=== PATIENT | female | born 1995 | race Caucasian/White ===

== ENCOUNTER → 2021-11-15 | Outpatient (CLI) | payer OTHER ==
[2021-11-15 10:13] LABS: HEMOGLOBIN 11.8 g/dl (12.0-15.5); MEAN CORPUSCULAR HGB CONC 33.7 g/dl (32.0-36.5); MEAN CORPUSCULAR VOLUME 83.1 fl (80.0-96.0); PLATELET COUNT, AUTOMATED 208 10^3/uL (150-450); RED BLOOD COUNT 4.21 10^6/uL (4.00-5.40)
[2021-11-15 11:55] LABS: GC DNA AMPLIFICATION NEGATIVE (NEGATIVE)
== END ==
LOC: M PLALAB 07:44
PROVIDERS: ATTEND Obstetrics & Gynecology
DX: Z34.82 Encounter for supervision of other normal pregnancy, second trimester (principal)

== ENCOUNTER → 2021-12-05 | Outpatient (CLI) | payer OTHER | LOC: MERGE 07:52 → M LAB 07:52 | PROVIDERS: ATTEND Obstetrics & Gynecology | DX: Z36.89 Encounter for other specified antenatal screening (principal) ==

== ENCOUNTER → 2022-01-04 | Outpatient (CLI) | payer OTHER ==
[~2022-01-04] MED LIST: FAMO20TA PO; PRENTAB9 PO
== END ==
LOC: M WHC 13:47
PROVIDERS: ATTEND Obstetrics & Gynecology
DX: O24.419 Gestational diabetes mellitus in pregnancy, unspecified control (principal); Z3A.36 36 weeks gestation of pregnancy

== ENCOUNTER 2022-01-07 06:14 | Observation (INO) | payer OTHER ==
[~2022-01-07] VITALS: Ht 162.6 cm; Wt 103.3 kg
[2022-01-07] MEDS ORDERED: FAMO20TA PO (06:25)
[2022-01-07] MEDS ORDERED: PRENTAB9 PO (06:25)
[2022-01-07 06:27] VITALS: BP 139/86
[2022-01-07] MEDS ORDERED: HOME MED LIST COMPLETE! XX SCH (06:30)
[2022-01-07] MEDS ORDERED: LR 1,000 ML IV SCH (06:45)
[2022-01-07] MEDS: BETAMETHASONE SOLUSPAN 6MG/ML 5ML VIAL (J0702 PER 3MG) IM SCH (07:11)
[2022-01-07 07:23] LABS: HEMATOCRIT 33.8 % (36.0-47.0); HEMOGLOBIN 11.4 g/dl (12.0-15.5); MEAN CORPUSCULAR HEMOGLOBIN 27.7 pg (27.0-33.0); MEAN CORPUSCULAR HGB CONC 33.7 g/dl (32.0-36.5); PLATELET COUNT, AUTOMATED 193 10^3/uL (150-450); RED BLOOD COUNT 4.12 10^6/uL (4.00-5.40); WHITE BLOOD COUNT 7.5 10^3/uL (4.0-10.0)
[2022-01-07 07:56] VITALS: BP 133/67
[2022-01-07 08:11] LABS: INR 0.84; PROTHROMBIN TIME 11.9 SECONDS (12.7-14.5)
[2022-01-07 08:12] LABS: PARTIAL THROMBOPLASTIN TIME 25.4 SECONDS (25.9-37.0)
[2022-01-07 09:56] VITALS: BP 119/69
[2022-01-07 12:08] VITALS: BP 134/81
[2022-01-07 14:03] LABS: GC DNA AMPLIFICATION NEGATIVE (NEGATIVE)
[2022-01-08] MEDS: BETAMETHASONE SOLUSPAN 6MG/ML 5ML VIAL (J0702 PER 3MG) IM SCH (06:43)
[2022-01-08 06:51] VITALS: BP 133/80
== END 2022-01-07 12:17 | disposition home or self-care (01) ==
LOC: M LDO 06:14 → M LDI 06:15
PROVIDERS: ADMIT Obstetrics & Gynecology; ATTEND Obstetrics & Gynecology
DX: O60.03 Preterm labor without delivery, third trimester (principal); O26.853 Spotting complicating pregnancy, third trimester; Z3A.33 33 weeks gestation of pregnancy; Z79.899 Other long term (current) drug therapy
CPT/HCPCS: 36415; 85027; 85384; 85460; 85610; 85730; 86850; 86900; 86901; 87070; 87077; 87081; 87661; 87810; 87850; 96360; 96361; 96372; J0702

== ENCOUNTER 2022-01-08 06:33 | Outpatient (CLI) | payer OTHER ==
[~2022-01-08] VITALS: Ht 162.6 cm; Wt 102.0 kg
[2022-01-08 06:30] VITALS: BP 133/80
[2022-01-08] MEDS ORDERED: BETAMETHASONE SOLUSPAN 6MG/ML 5ML VIAL (J0702 PER 3MG) IM ONE (07:05)
== END 2022-01-08 06:44 | disposition home or self-care (01) ==
LOC: M LDO 06:33
PROVIDERS: ATTEND Advanced Practice Midwife
DX: O60.03 Preterm labor without delivery, third trimester (principal); O26.853 Spotting complicating pregnancy, third trimester; Z3A.34 34 weeks gestation of pregnancy
CPT/HCPCS: 59025; 96372; J0702

== ENCOUNTER 2022-01-21 15:10 | Outpatient (CLI) | payer OTHER ==
[~2022-01-21] VITALS: Ht 162.6 cm; Wt 104.4 kg
[2022-01-21 15:40] VITALS: BP 133/78
[2022-01-21] MEDS ORDERED: FLUCONAZOLE 50MG TABLET PO SCH (16:00)
[2022-01-21 16:48] VITALS: BP 123/70
== END 2022-01-21 18:20 ==
LOC: M LDO 15:10
PROVIDERS: ATTEND Advanced Practice Midwife
DX: O60.03 Preterm labor without delivery, third trimester (principal); O23.593 Infection of other part of genital tract in pregnancy, third trimester; O26.893 Other specified pregnancy related conditions, third trimester; M54.30 Sciatica, unspecified side; Z3A.35 35 weeks gestation of pregnancy

== ENCOUNTER 2022-02-13 06:43 | Inpatient (IN) | payer OTHER ==
[~2022-02-13] VITALS: Ht 162.6 cm; Wt 106.3 kg
[2022-02-13] VITALS (22 sets, daily range): BP systolic 131–174; BP diastolic 77–101
[2022-02-13] MEDS ORDERED: HOME MED LIST COMPLETE! XX SCH (07:10)
[2022-02-13] MEDS ORDERED: TRANEXAMIC ACID INJection 1,000 MG in NS 100 ML IV PRN (08:05)
[2022-02-13] MEDS ORDERED: LIDOCAINE 1% MDV 20ML VIAL INFIL PRN (08:05)
[2022-02-13] MEDS ORDERED: CARBOPROST TROMETHAMINE 250 MCG/ML AMP IM PRN (08:05)
[2022-02-13] MEDS ORDERED: miSOPROStol 50MCG 1/2 TABLET PO ONE (08:05)
[2022-02-13] MEDS ORDERED: OXYTOCIN DRIP 30 UNITS in IV 1 EA IV PRN ×4 (08:05)
[2022-02-13] MEDS ORDERED: OXYTOCIN INJ 10 UNITS/ML VIAL (J2590) IM PRN (08:05)
[2022-02-13] MEDS ORDERED: METHYLERGONOVINE MALEATE 0.2 MG/ML VIAL (J2210) IM PRN (08:05)
[2022-02-13 09:07] LABS: TOTAL PROTEIN,RANDOM URINE 28.4 MG/DL (0.0-12.0)
[2022-02-13] MEDS: miSOPROStol 50MCG 1/2 TABLET PO SCH ×3 (09:10→18:25)
[2022-02-13 09:11] LABS: HEMATOCRIT 36.7 % (36.0-47.0); HEMOGLOBIN 12.2 g/dl (12.0-15.5); MEAN CORPUSCULAR HEMOGLOBIN 27.1 pg (27.0-33.0); MEAN CORPUSCULAR HGB CONC 33.2 g/dl (32.0-36.5); MEAN CORPUSCULAR VOLUME 81.4 fl (80.0-96.0); PLATELET COUNT, AUTOMATED 220 10^3/uL (150-450); RED BLOOD COUNT 4.51 10^6/uL (4.00-5.40); WHITE BLOOD COUNT 8.5 10^3/uL (4.0-10.0)
[2022-02-13 10:13] LABS: HEMOGLOBIN A1c 5.1 %
[2022-02-13 10:29] LABS: ALT/SGPT 15 U/L (12-78); BILIRUBIN,TOTAL 0.2 MG/DL (0.2-1.0); CREATININE FOR GFR 0.55 MG/DL (0.55-1.30); GLOMERULAR FILTRATION RATE > 60.0 (>60); LDH LACTATE DEHYDROGENASE 128 U/L (84-246); URIC ACID 3.6 MG/DL (2.6-6.0)
[2022-02-13] MEDS ORDERED: ACETAMINOPHEN 500 MG TAB PO PRN (19:50)
[2022-02-13] MEDS ORDERED: OXYTOCIN DRIP 30 UNITS in IV 1 EA IV SCH (21:15)
[2022-02-13] MEDS: LR 1,000 ML IV SCH (22:36)
[2022-02-14] VITALS (41 sets, daily range): BP systolic 117–165; BP diastolic 61–104
[2022-02-14] MEDS ORDERED: BUTORPHANOL 2 MG/ML INJ (J0595) IV ONE (02:10)
[2022-02-14] MEDS ORDERED: PROMETHAZINE 25MG/ML 1ML VIAL IV ONE (02:10)
[2022-02-14] MEDS ORDERED: FENTANYL 2MCG/ML ROPIVACAINE 0.2% IN 0.9% NACL 100ML IVBAG As Ordered ONE (04:15)
[2022-02-14] MEDS: LR 1,000 ML IV SCH ×2 (04:52→07:28)
[2022-02-14] MEDS ORDERED: ePHEDrine SULFATE 25 MG/5 ML(5MG/ML) SYRINGE IVP PRN (05:10)
[2022-02-14] MEDS ORDERED: NALOXONE INJ 0.4MG/1ML VIAL (J2310 PER 1MG) IV PRN (05:10)
[2022-02-14] MEDS ORDERED: diphenhydrAMINE 50MG/ML VIAL (J1200) IV PRN (05:10)
[2022-02-14] MEDS ORDERED: LR 500 ML IV PRN (05:10)
[2022-02-14] MEDS ORDERED: ONDANSETRON 4MG/2ML VIAL IV PRN ×2 (05:10→09:25)
[2022-02-14] MEDS ORDERED: EPIDURAL/PCA KEYS XX PRN (05:10)
[2022-02-14] MEDS: FENTANYL/ROPIVACAINE/NACL BAG 100 ML EPIDURAL SCH ×2 (05:16→11:42)
[2022-02-14] MEDS ORDERED: RHOGAM 300 MCG (1500 IU) INJ (J2790) IM SCH (09:25)
[2022-02-14] MEDS ORDERED: IBUPROFEN 800 MG TAB PO PRN (09:25)
[2022-02-14] MEDS ORDERED: ACETAMINOPHEN 500 MG TAB PO PRN (09:25)
[2022-02-14] MEDS ORDERED: IBUPROFEN 600MG TAB PO PRN (09:25)
[2022-02-14] MEDS ORDERED: LR 1,000 ML IV SCH (09:25)
[2022-02-14] MEDS ORDERED: OXYTOCIN DRIP 30 UNITS in IV 1 EA IV SCH (09:25)
[2022-02-14] MEDS ORDERED: METHYLERGONOVINE MALEATE 0.2 MG TAB PO PRN (09:25)
[2022-02-14] MEDS ORDERED: ACETAMINOPHEN TAB 650MG DOSE (2X325MG) PO PRN (09:25)
[2022-02-14] MEDS ORDERED: DOCUSATE SODIUM 100MG CAPSULE PO PRN (09:25)
[2022-02-14] MEDS ORDERED: DIBUCAINE 1% OINTMENT 30GM TOP PRN (09:25)
[2022-02-14] MEDS: PRENATAL VITAMINS CHEWABLE TABLET PO SCH (11:40)
[2022-02-15 06:00] VITALS: BP 122/82
[2022-02-15] MEDS: PRENATAL VITAMINS CHEWABLE TABLET PO SCH (07:51)
[2022-02-15] MEDS ORDERED: IBUP80TA PO (10:28)
[2022-02-15] MEDS ORDERED: ACET-683 PO (10:28)
[2022-02-16] MEDS ORDERED: MEASLES,MUMPS,RUBELLA VACCINE INJ (MMR-II) (90707) SC ONE (09:00)
== END 2022-02-15 12:31 | disposition home or self-care (01) | DRG 560 ==
LOC: M LDI 06:43 → M OBS 02-14 11:29
PROVIDERS: ADMIT Advanced Practice Midwife; ATTEND Obstetrics & Gynecology
PROC: 3E0P7GC Introduction of Other Therapeutic Substance into Female Reproductive, Via Natural or Artificial Opening (ICD-10-PCS; 2022-02-13)
PROC: 10E0XZZ Delivery of Products of Conception, External Approach (ICD-10-PCS; principal; 2022-02-14)
DX: O24.420 Gestational diabetes mellitus in childbirth, diet controlled (principal); Z3A.39 39 weeks gestation of pregnancy; Z37.0 Single live birth; O99.214 Obesity complicating childbirth; E66.9 Obesity, unspecified; Z68.34 Body mass index [BMI] 34.0-34.9, adult

== ENCOUNTER 2022-04-10 08:37 | Emergency (ER) | payer OTHER ==
[~2022-04-10] VITALS: Ht 162.6 cm; Wt 93.9 kg
[~2022-04-10 08:37] MED LIST changes: +ACET-683 PO; +IBUP80TA PO
[2022-04-10] MEDS ORDERED: KETOROLAC TROMETHAMINE 10 MG TAB PO ONE (12:30)
[2022-04-10 13:31] VITALS: BP 125/81
== END 2022-04-10 13:48 | disposition home or self-care (01) ==
LOC: M ED 08:37 → EDBD 08:37 → M ED 13:48
DX: Z04.1 Encounter for examination and observation following transport accident (principal)

== ENCOUNTER → 2022-05-20 | Outpatient (REF) | payer OTHER | LOC: M SFHCWAGY 17:08 | PROVIDERS: ATTEND Obstetrics & Gynecology | DX: Z12.4 Encounter for screening for malignant neoplasm of cervix (principal) ==

== ENCOUNTER 2022-10-16 20:13 | Emergency (ER) | payer OTHER ==
[~2022-10-16] VITALS: Ht 165.1 cm; Wt 96.4 kg
[2022-10-16 20:15] VITALS: BP 134/90
== END 2022-10-16 22:53 | disposition left against medical advice (07) ==
LOC: M ED 20:13
DX: Z53.21 Procedure and treatment not carried out due to patient leaving prior to being seen by health care provider (principal)

== ENCOUNTER → 2022-11-26 | Outpatient (CLI) | payer OTHER | LOC: M RAD 12:51 | PROVIDERS: ATTEND Physician Assistant | DX: R10.2 Pelvic and perineal pain (principal) ==

== ENCOUNTER 2022-12-31 10:06 | Emergency (ER) | payer OTHER ==
[~2022-12-31] VITALS: Ht 165.1 cm; Wt 96.4 kg
[2022-12-31] MEDS ORDERED: PROCHLORPERAZINE 10MG 2ML VIAL IV ONE (10:20)
[2022-12-31] MEDS ORDERED: diphenhydrAMINE 50MG/ML VIAL IV STA (10:20)
[2022-12-31 11:10] LABS: BASO % 0.4 % (0.0-1.0); EOS # 0.3 10^3/uL (0.0-0.5); EOS % 3.4 % (0.0-3.0); HEMATOCRIT 41.9 % (36.0-47.0); HEMOGLOBIN 13.7 g/dl (12.0-15.5); LYMPH # 1.6 10^3/uL (1.5-5.0); LYMPH % 18.8 % (24.0-44.0); MEAN CORPUSCULAR HEMOGLOBIN 26.4 pg (27.0-33.0); MEAN CORPUSCULAR HGB CONC 32.7 g/dl (32.0-36.5); MEAN CORPUSCULAR VOLUME 80.9 fl (80.0-96.0); MONO # 0.4 10^3/uL (0.0-0.8); MONO % 5.2 % (2.0-8.0); NEUTROPHILS # 6.1 10^3/uL (1.5-8.5); NEUTROPHILS % 71.5 % (36.0-66.0); PLATELET COUNT, AUTOMATED 252 10^3/uL (150-450); RED BLOOD COUNT 5.18 10^6/uL (4.00-5.40); WHITE BLOOD COUNT 8.5 10^3/uL (4.0-10.0)
[2022-12-31 11:26] LABS: INR 0.91; PARTIAL THROMBOPLASTIN TIME 26.2 SECONDS (24.8-34.2); PROTHROMBIN TIME 12.4 SECONDS (12.5-14.5)
[2022-12-31 11:37] LABS: ALBUMIN 3.5 G/DL (3.2-5.2); ALKALINE PHOSPHATASE 88 U/L (46-116); ALT/SGPT 13 U/L (7.0-40); AST/SGOT 16 U/L (<34); BILIRUBIN,TOTAL 0.6 MG/DL (0.3-1.2); BLOOD UREA NITROGEN 9 MG/DL (9-23); CALCIUM LEVEL 8.5 MG/DL (8.5-10.1); CARBON DIOXIDE LEVEL 24 MMOL/L (20-31); CHLORIDE LEVEL 108 MMOL/L (98-107); CREATININE FOR GFR 0.58 MG/DL (0.55-1.30); GLOMERULAR FILTRATION RATE > 60.0 (>60); GLUCOSE, FASTING 92 MG/DL (60-100); POTASSIUM SERUM 4.3 MMOL/L (3.5-5.1); SODIUM LEVEL 138 MMOL/L (136-145); TOTAL PROTEIN 6.5 G/DL (5.7-8.2)
[2022-12-31] MEDS ORDERED: ISOVUE-370 76% 100ML VIAL As Ordered ONE (11:41)
[2022-12-31 12:38] LABS: ERYTHROCYTE SEDIMENTATION RATE 24 mm/hr (0-20)
[2022-12-31 12:59] VITALS: BP 145/82
== END 2022-12-31 13:01 | disposition home or self-care (01) ==
LOC: M ED 10:06 → EDBD 10:06 → M ED 13:01
DX: R51.9 Headache, unspecified (principal); Z86.32 Personal history of gestational diabetes
CPT/HCPCS: 70450; 70496; 70498; 80053; 84702; 85025; 85610; 85652; 85730; 86140; 96374; 96375; 99284; J0780; J1200; Q9967

== ENCOUNTER → 2023-11-25 | Outpatient (REF) | payer OTHER, MEDICAID | LOC: M LAB REF 20:56 | PROVIDERS: ATTEND Physician Assistant Medical | DX: R07.0 Pain in throat (principal) ==

== ENCOUNTER → 2024-03-23 | Outpatient (REF) | payer OTHER, MEDICAID ==
[2024-03-23 18:02] LABS: TOTAL 25(OH) VITAMIN D 30.4 NG/ML (20.0-100.0)
[2024-03-23 18:05] LABS: ALBUMIN 3.9 G/DL (3.2-5.2); ALKALINE PHOSPHATASE 108 U/L (46-116); ALT/SGPT 16 U/L (7.0-40); AST/SGOT < 8 U/L (<34); BILIRUBIN,TOTAL 0.4 MG/DL (0.3-1.2); BLOOD UREA NITROGEN 13 MG/DL (9-23); CALCIUM LEVEL 9.7 MG/DL (8.5-10.1); CARBON DIOXIDE LEVEL 26 MMOL/L (20-31); CHLORIDE LEVEL 108 MMOL/L (98-107); CHOLESTEROL LEVEL 210 MG/DL (<200); CHOLESTEROL RISK RATIO 7.16 (<5); CREATININE FOR GFR 0.74 MG/DL (0.55-1.30); GLOMERULAR FILTRATION RATE > 60.0 (>60); GLUCOSE, FASTING 63 MG/DL (60-100); HDL CHOLESTEROL 29.3 MG/DL (>40); LDL CHOLESTEROL 129.9 MG/DL (<100); NON-HDL-C 180.7 MG/DL; POTASSIUM SERUM 4.3 MMOL/L (3.5-5.1); SODIUM LEVEL 141 MMOL/L (136-145); TOTAL PROTEIN 7.1 G/DL (5.7-8.2); TRIGLYCERIDES LEVEL 254 MG/DL (<150)
[2024-03-23 18:35] LABS: HEMOGLOBIN A1c 5.1 % (4.0-6.0)
== END ==
LOC: M LAB REF 16:41
PROVIDERS: ATTEND Physician Assistant
DX: Z11.9 Encounter for screening for infectious and parasitic diseases, unspecified (principal); E66.9 Obesity, unspecified

== ENCOUNTER → 2025-07-25 | Outpatient (REF) | payer OTHER, MEDICAID | LOC: M LAB REF 11:49 | PROVIDERS: ATTEND Physician Assistant Medical | DX: B34.9 Viral infection, unspecified (principal) ==

== ENCOUNTER → 2025-07-26 | Outpatient (REF) | payer OTHER, MEDICAID ==
[2025-07-26 16:31] LABS: PLATELET COUNT, AUTOMATED 305 10^3/uL (150-450)
[2025-07-26 16:48] LABS: C REACTIVE PROTEIN QUANTITATIV 1.91 MG/DL (<1.0)
[2025-07-26 16:49] LABS: ALT/SGPT 32 U/L (7.0-40); AST/SGOT 25 U/L (<34); CALCIUM LEVEL 9.1 MG/DL (8.5-10.1); CARBON DIOXIDE LEVEL 26 MMOL/L (20-31); CHLORIDE LEVEL 104 MMOL/L (98-107); CK-MB VALUE MASS < 1.0 NG/ML (<3.6); CREATININE FOR GFR 0.67 MG/DL (0.55-1.30); GLOMERULAR FILTRATION RATE > 90.0 (>60); MAGNESIUM LEVEL 1.8 MG/DL (1.8-2.4); POTASSIUM SERUM 4.2 MMOL/L (3.5-5.1); SODIUM LEVEL 139 MMOL/L (136-145)
[2025-07-26 16:52] LABS: CPK CREATINE PHOSPHOKINASE 58 U/L (34-145)
== END ==
LOC: M LAB REF 16:12
PROVIDERS: ATTEND Physician Assistant
DX: R07.9 Chest pain, unspecified (principal); R42 Dizziness and giddiness

== ENCOUNTER → 2025-07-29 | Outpatient (CLI) | payer OTHER | LOC: M RAD 12:21 | PROVIDERS: ATTEND Physician Assistant | DX: R07.9 Chest pain, unspecified (principal) ==